=== PATIENT | male | born 1935 | race Caucasian/White ===

== ENCOUNTER 2025-03-16 06:11 | Inpatient (IN) | payer MEDICARE, OTHER, SELFPAY ==
[2025-03-11 08:51] VITALS: BMI 27.2
[2025-03-11 09:15] LABS: Hematocrit 44.7 % (39.0-52.0); Hemoglobin 14.3 g/dL (13.0-18.0); Mean Corp Hgb Conc. 32.0 g/dL (33.0-37.0); Mean Corpuscular Volume 95.9 fL (80.0-94.0); Nucleated Red Blood Cells % 0 % (-); Platelet Count 146 10^3/uL (130-400); Red Cell Dist. Width 14.1 % (11.5-14.5)
[2025-03-11 09:24] LABS: INR 1.02; PT 13.9 Sec (11.4-14.6)
[2025-03-11 09:25] LABS: APTT 30.2 Sec (23.4-35.0)
[2025-03-11 10:28] LABS: Blood Urea Nitrogen 27 mg/dl (9-20); Calcium 9.1 mg/dl (8.4-10.2); Carbon Dioxide 24 mmol/L (22-30); Chloride 108 mmol/L (98-107); Estimated Creatinine Clearance 51 ml/min; Glucose 95 mg/dl (70-99); Potassium 5.5 mmol/L (3.5-5.1); Sodium 141 mmol/L (135-145); eGFR > 60.00
--- NOTE | 2025-03-11 12:31 | PTCARENOTE ---
Mariely in office made aware of K 5.5.
--- NOTE | 2025-03-11 13:58 | PTCARENOTE ---
Dr Sanchez made aware of K 5.5, repeat lab morning of surgery ordered.
[2025-03-16] VITALS (23 sets, daily range): BP systolic 98–172; BP diastolic 45–103; BMI 27.2; BMI 27.0
[2025-03-16] MEDS: PERIDEX 0.12% ORAL RINSE 15 ML PO (07:10)
[2025-03-16] MEDS: BACTROBAN NASAL 1 GRAM NASAL (07:10)
[2025-03-16] MEDS: NSS 228 IV (07:11)
--- NOTE | 2025-03-16 07:12 | W.SUR.PREOP ---
Pre-Operative Surgical Note
-
I have examined this patient prior to the performance of the scheduled procedure.
The patient's condition is unchanged from the time of the current History and
Physical and the patient is able to undergo the scheduled procedure.
[2025-03-16 07:30] LABS: Blood Urea Nitrogen 22 mg/dl (9-20); Calcium 8.8 mg/dl (8.4-10.2); Carbon Dioxide 27 mmol/L (22-30); Chloride 107 mmol/L (98-107); Estimated Creatinine Clearance 58 ml/min; Glucose 94 mg/dl (70-99); Potassium 4.3 mmol/L (3.5-5.1); Sodium 139 mmol/L (135-145); eGFR > 60.00
[2025-03-16 11:14] LABS: ACT-LR - POC 227 Seconds (116-155)
[2025-03-16 12:13] LABS: ACT-LR - POC 240 Seconds (116-155)
[2025-03-16 13:00] LABS: ACT-LR - POC 227 Seconds (116-155)
[2025-03-16 13:12] LABS: ACT-LR - POC 266 Seconds (116-155)
[2025-03-16 14:05] LABS: ACT-LR - POC 223 Seconds (116-155)
[2025-03-16 14:16] LABS: ACT-LR - POC 218 Seconds (116-155)
[2025-03-16 14:28] LABS: ACT-LR - POC 253 Seconds (116-155)
[2025-03-16 15:23] LABS: ACT-LR - POC 215 Seconds (116-155)
--- NOTE | 2025-03-16 16:36 | W.SUR.POST ---
Surgical Immediate Post Op
Note
Pre Op Diagnosis: AAA
Post Op Diagnosis: AAA
Procedure Performed: EVAR with thoracoabdominal aortic branched graft�TAMBE
Primary Surgeon: El
Assist: Sandip CAMERON and Thong CAMERON
Anesthesia: General
Estimated Blood Loss: 200 cc
Fluids: See anesthesia flowsheet
Drains/Shunts: None
Specimens/Cultures: None
Doppler/Duplex/Angio (Y/N): Y
Complications: None
Operative Findings: Palpable bilateral DP pulses and right upper extremity radial pulse upon completion
[2025-03-16 16:37] LABS: Magnesium 1.8 mg/dl (1.6-2.3)
[2025-03-16] MEDS: SUBLIMAZE 50 MCG IV ×2 (16:56→17:23)
--- NOTE | 2025-03-16 17:07 | CON.INTV ---
Consultation
Consultation Request
Date/Time Consultation Requested: 03/16
Date/Time Consultation Performed: 03/16
Reason for Consultation: Critical care management
Medical History
-
History of Present Illness:
History primarily obtained from the chart and reviewing outpatient records. Patient is still waking her from anesthesia, evaluated in the PACU. Patient is an 89-year-old male who follows vascular surgery with history of abdominal aortic aneurysm.
Patient was noted to have juxtarenal and infrarenal involvement increased to 6.5 cm. Patient is currently status post endovascular repair of juxtarenal abdominal aortic aneurysm with [place] thoracoabdominal branched endoprosthesis and a four-vessel
stent graft placement, Right axillary open surgical cutdown and percutaneous bilateral Comment femoral artery closure. Patient was complaining of right leg pain given fentanyl in the PACU. Episodes of apnea noted the patient is easily arousable,
hemodynamically stable. We are asked to help from critical care standpoint
.
PMH: Hypertension, history of pacemaker placement 2010 with history of ablation in [place]. History of nephrolithiasis. 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
Past Medical History
Past Medical History: None (See above)
Past Surgical History: None (See above)
Social History
Tobacco: Non-smoker
Employment: Retired
Family History
Family History: Unable to Obtain
Allergies / Home Medications
Allergies
Allergy/AdvReac Type Severity Reaction Status Date / Time
No Known Allergies Allergy Verified 03/16/25 07:13
Home Medications
�Medication �Instructions �Recorded �Confirmed �Last Taken �Type
3 In 1 Daily Fiber 5 cap PO BID 03/09/25 03/16/25 03/15/25 21:00 History
ascorbic acid (vitamin C) 500 mg 500 mg PO DAILY 03/09/25 03/16/25 03/15/25 08:00 History
tablet (Vitamin C)
aspirin 81 mg tablet,delayed 81 mg PO DAILY 03/09/25 03/16/25 03/15/25 08:00 History
release
calcium 600 mg (as 1 tab PO DAILY 03/09/25 03/16/25 03/15/25 08:00 History
carbonate)-vitamin D3 10 mcg (400
unit) tablet (Calcium 600 + D(3))
ibuprofen 200 mg tablet 200 - 400 mg PO Q6H PRN 03/09/25 03/09/25 Unknown History
pain/headache
metoprolol succinate 50 mg 50 mg PO HS 03/09/25 03/16/25 03/15/25 21:00 History
tablet,extended release 24 hr
pantoprazole 20 mg tablet,delayed 20 mg PO DAILY 03/09/25 03/16/25 03/15/25 21:00 History
release
rosuvastatin 5 mg tablet 5 mg PO HS 03/09/25 03/16/25 03/15/25 21:00 History
tamsulosin 0.4 mg capsule 0.4 mg PO HS 03/09/25 03/16/25 03/15/25 21:00 History
Review of Systems
-
Unable to Obtain full review of systems at this time due to: Acuity
All other systems: Unreviewed
Vitals / Labs / Diagnostic Testing
Vital Signs
Temp Pulse Resp BP Pulse Ox
97 F 60 25 169/103 98
03/16/25 06:28 03/16/25 07:15 03/16/25 07:15 03/16/25 06:42 03/16/25 07:15
Diagnostic Testing:
Physical Exam
-
HEENT: Normocephalic, Anicteric and Other ( pupils equal)
Cardiovascular: S1/S2, Regular Rhythm, Murmur (n), Rub (n) and Peripheral Edema (n)
Respiratory: Wheeze (n), Rales (n) and Rhonchi (n)
GI: Soft, Non Distended and Non Tender
Neurology: Awake ( lethargic at times of arousable, answering questions)
Skin: Good Color ( few patchy bruising, lower extremities warm. Bilateral femoral pulse intact, right anterior chest incision intact)
General: Comfortable ( lying flat)
Assessment
-
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
distal extension with bifurcated endoprosthesis and bilateral iliac limb extension, right axillary cut down, bilateral common femoral artery closure on 03/16/25 without complication.
S/p EVAR with [place] thoracoabdominal aortic branched graft (TAMBE)
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
blood loss 200 cc
Challenging but successful cannulation of right renal artery
Mild leukocytosis
Conditions present prior to admission
Hypertension/hyperlipidemia
GERD
BPH
History of pacemaker, sick sinus syndrome
Plan/recommendations
At this time, patient remains critically ill but stable
Extensive postoperative report reviewed
Difficult cannulation of right main artery noted but successful with good filling of the right renal artery per angiogram
Hemodynamics presently stable
Patient moving all 4 extremities
Green catheter in place
Moving forward
Continue with IV fluids
Extremities warm, pulses intact, bilateral femoral pulse intact
Patient was complaining of right leg pain but adequate pulses noted
Vascular following
Follow urine output, follow for abdominal discomfort
GERD therapy
Pain control
vascular checks per protocol
Resume outpatient regimen per vascular protocol
Aspirin and Plavix to start 03/17
EKG, chest x-ray ones arise to ICU
Reviewed with PACU staff
TCCT 31 min
[2025-03-16 17:25] LABS: Hematocrit 37.2 % (39.0-52.0); Hemoglobin 11.8 g/dL (13.0-18.0); Mean Corp Hgb Conc. 31.7 g/dL (33.0-37.0); Mean Corpuscular Volume 94.9 fL (80.0-94.0); Platelet Count 120 10^3/uL (130-400); Red Cell Dist. Width 13.9 % (11.5-14.5)
[2025-03-16 17:38] LABS: INR 1.34; PT 16.9 Sec (11.4-14.6)
[2025-03-16 17:39] LABS: APTT 29.2 Sec (23.4-35.0)
--- NOTE | 2025-03-16 17:40 | OR.RPT ---
Addendum entered and electronically signed by Nathanael Gallegos MD 03/16/25 17:53:
1 correction to the operative note below. After the Cochran VBX (the initial Cochran VBX) was positioned in the right renal artery, it was at that point that the remainder of the main Cochran TAMBE graft was completely deployed. This is the standard
method, completing the last covered stent once the main graft has been completely deployed. (In order to prevent any wind socking effect).
Original Note:
Operative Report
Operative Report
PROCEDURE DATE: 03/16/2025
Preoperative diagnosis: Enlarging juxtarenal, bilobed abdominal aortic aneurysm.
Postoperative diagnosis: Same
Procedure:
1. Endovascular repair of juxtarenal abdominal aortic aneurysm with Cochran TAMBE thoracoabdominal branched endoprosthesis with 4 vessel branch stent graft placement (with Cochran VBX covered stents).
2. Distal extension with Cochran excluder bifurcated endoprosthesis with bilateral iliac limb extension.
3. Right axillary open surgical cutdown.
4. Percutaneous bilateral common femoral artery closure.
Surgeon: El
Retail Customer Service Representative: Shlomo, PATTERN SCRATCHER's, required for all aspects of procedure including assistance with traction/countertraction, assistance with stent graft delivery, assistance with closure.
Complications: None
Anesthesia: General
Fluoroscopy:
3.224 Taylor, 666.20 DAP, 124.9 minutes
Indications for procedure:
Enlarging abdominal aortic aneurysm bilobed. Proximal component juxtarenal. Based on anatomy, not a candidate for standard EVAR or standard fenestrated endograft. We felt he would be a good candidate for Cochran TAMBE thoracoabdominal
endoprosthesis. Risk/benefits/alternatives also discussed. Patient understood and wished to proceed.
Description of procedure:
Patient was identified brought to the operating room placed on the table in supine position. After the adequate administration of anesthesia and perioperative antibiotics he was prepped and draped in the standard surgical fashion. A standard
preoperative timeout was undertaken and everybody was in agreement the plan.
A transverse incision was made about 1 fingerbreadth inferior to the clavicle at the juncture between the mid to distal third of the clavicle. This was carried through skin subcutaneous tissue with electrocautery. The pectoralis major muscle was
divided in the direction of fibers, and bluntly dissected to split the muscle fibers. The clavipectoral fascia was then dissected carefully. Any crossing vein branches were ligated between silk ties and divided. The axillary vein was identified.
One of the branches, possibly the cephalic arch, was ligated between silk ties and divided to facilitate exposure. In its usual location superior and posterior to the axillary vein, identified the axillary artery. It was carefully dissected away
from surrounding structures and great care to avoid any injury to structures. Vesseloops were passed around it proximally and distally. There was a branch arising somewhat anteriorly, likely the thoracoacromial artery or other. This was ligated
between silk ties and divided. While ligating it the axillary artery just adjacent to the branch appeared to tear. [id number] 5-0 Prolene was placed to repair this.
At this point, bilateral common femoral artery access was obtained under direct duplex ultrasound guidance. 6 Tunisian sheaths were placed over 0.035 inch wires. Next, small 1 cm incisions were made around the sheath entry sites bilaterally. Blunt
dissection was undertaken with hemostats to facilitate percutaneous suture delivery. Next, using the ProGlide suture system, percutaneous sutures were deployed at the 10:00 and 2 o'clock position bilaterally in the standard fashion. Suture strands
were tagged outside the skin. We exchanged for 11 Tunisian sheaths bilaterally. Next using a KMP catheter, I guided wires into the supraceliac aorta from bilateral access sites. On the left side I exchanged out for a pigtail catheter which was
positioned in the juxtarenal aorta. The right side I exchanged for a Lunderquist wire. The patient was given an appropriate dose of heparin. Next I exchanged my right-sided 11 Tunisian sheath for a Cochran dry seal 22 Tunisian sheath which was advanced
into the aorta under fluoroscopy.
At this point, I turned my attention back to the right axillary exposure. I now punctured the artery at that branch site that I had prior ligated. (I actually disconnected the branch and through the small hole in the artery there I accessed with a
needle and then advanced a micropuncture sheath). I now advanced a 0.035 inch wire, but there were some tortuosity in the axillary artery and into the innominate/arch of the aorta. This proved to make it slightly challenging for shorter sheaths to
be advanced over the 0.035 inch wire but I advanced a 7 Tunisian sheath as far as I could. I now tried to gain wire access into the descending thoracic aorta which actually proved to be challenging due to the tortuosity of the aorta. Once I finally
got a wire down, I tried to advance a catheter (Robinson catheter). However it kept popping out due to the tortuosity. Finally, I was able to gain wire access all the way down into the abdominal aorta. I now advanced the Miguel catheter all the way
down there. I exchanged for a Storq wire. I then exchanged for a longer 7 Tunisian sheath to overcome some of the tortuosity in the subclavian/axillary system. Once I did this, I then advanced a snare catheter and then trilobed snare into the
descending thoracic aorta. From the right sided femoral access/22 Tunisian sheath, I advanced a Jagwire. I snared this now in the descending thoracic aorta and pulled it out the 7 Tunisian axillary artery sheath. Now I had through and through wire
access with a Jagwire (400 cm). Now with the Jagwire maintaining tension, I exchanged the 7 Tunisian from the axillary artery access to a 12 Tunisian sheath which was advanced into the descending thoracic aorta.
At this point, I advanced the Cochran TAMBE endoprosthesis over the Jag wire that came out the R groin 22F sheath. However I did not advance it into the sheath yet. I positioned it in the standard fashion with the handle of the delivery device facing
downward.
Now I advanced a Tri lumen catheter from the axillary sheath over the Jagwire and passed it until it came out the hub of the 22 Tunisian right sided Cochran dry seal sheath. With the catheter positioned as such, I now advanced a 0.018 inch wire through
one of the 2 small additional lumens (1 with a small taylor tube, and the other had a small white tube emanating). This was advanced until it came out the try lumen catheter in the groin. It was the lateral (patient left) side, and therefore we now
inserted this through the precannulated tube for the left renal branch/portal (of the precannulated tubes we first accessed the longer ones and this was the lateral of the longer). Clear marking with hemostats was made both in the groin site that
this was the left renal. Next we did the celiac in a similar fashion through the other tube and the Tri lumen. It was also marked with a hemostat labeling it as the celiac. The Tri lumen catheter was then withdrawn maintaining tension on the
0.018 inch wires in the groin to avoid them being pulled out. Now we identified which wire correlated to which marking in the groin at her axillary site as well and placed hemostats on those wires to confirm which wires were through which portals.
We similarly now did this again with the Tri lumen catheter and advanced 2 more wires similarly labeling them right renal and SMA. Once we had all 4 wires labeled, the Tri lumen catheter was withdrawn over the Jagwire.
Now that the Cochran TAMBE endoprosthesis ([id number]) - which was a 37mm x 160mm graft -was loaded completely onto the Jagwire through the central lumen, and all 4 visceral precannulated branches were successfully decannulated, we now advanced the
endoprosthesis through the sheath in the right groin maintaining through and through tension on the Jagwire. Once I advanced it into the abdominal aorta/distal descending thoracic aorta, power injection aortography was performed. Of note care was
taken to make sure that the long marker was on the left lateral side (left lateral vitale the correct positioning). We had to rotate the graft to get it to be positioned correctly, but was able to do so successfully. Once that was position, and our
power injection aortography was performed, we noted the positions of the celiac artery and the renal arteries and the SMA. We now positioned the stent graft such that the distal aspect of the renal artery portals would be at the level of the celiac
artery. Satisfied with positioning, we then deployed the initial segment of the graft. This deployed the top segment. However it was still constrained. Once we are satisfied with the positioning then the taylor knob was rotated to fully flower
open the top portion of the stent graft.
We now elected to start with our celiac cannulation. Therefore, 8 Tunisian Ansell sheath was advanced over the 0.018 inch wire from the axillary site under fluoroscopy and the sheath was advanced through the portal for the celiac and out the distal
aspect of the portal. The introducer was then removed. We then placed an additional petra wire (Glidewire) and catheter (Robinson catheter) through here. Using the floppy Glidewire and the Robinson catheter I tried to cannulate the celiac. However based
on the angulation and the proximity, the wire kept getting into the SMA. We therefore then decided to switch so that our prior labeled celiac through and through wire (through the celiac portal) would now be our SMA portal instead and vice versa of
the SMA portal would now be the celiac portal. Therefore, we now also exchanged the Glidewire in the distal SMA out for a Lorenz wire. Therefore we left the wire (0.035 inch) in the SMA from above and walked to the Ansell sheath off both wires (the
buddied 0.035 inch Lorenz wire as well as the 0.018 inch wire).
Now we turned our attention to the celiac artery. We now advanced our Ansell sheath over that 0.018 inch wire and advanced it under fluoroscopy through the portal and out the portal. The introducer was removed and then a Fierro catheter and
floppy angled wire were buddied through the sheath. I now was able to cannulate the celiac artery and into the hepatic artery. Of note the initial imaging to ernestina the celiac had been done and lateral wall close to lateral projection. I cannulated
both the SMA and the celiac and the more lateral projection. Blood flow back to AP once I was in the vessel. Now in AP I did confirm that my wire was in the hepatic artery. Next, the sheath was advanced into the celiac artery (after I had
exchanged for a Lorenz wire). I then advanced a Cochran VBX 9 mm x 59 mm covered stent and positioned it. I had performed angiography in the proper obliquity to identify the celiac bifurcation. I made sure that I was well short of the celiac
bifurcation. Once satisfied, the Ansell sheath was withdrawn. The through and through 0.018 inch wire was withdrawn out completely. The VBX stent graft was then ballooned into place. I then used a 12 mm x 2 mm balloon to balloon the more distal
aspect of the stent graft as the celiac was enlarged there. As the balloon was deflated I advanced the sheath back into the artery. Angiogram confirmed excellent positioning of the stent graft with good flow in the stent graft. Ansell sheath was
withdrawn out of the celiac completely. I did maintain a 0.035 inch Lorenz wire for now in the case that we would need to extend the celiac stent as we had a little bit of extra room to extend.
Now having completed the celiac, I turned my attention back to the SMA which was already wired. Therefore I then just placed the Ansell sheath back into the SMA. We marked the first branch point which would be the distal aspect of our VBX covered
stent. We then positioned a Cochran VBX 9 mm x 79 mm stent graft. Again as with the celiac we confirmed distally we were far enough into the vessel and proximally we were 5 mm to 1 cm above the proximal aspect of the SMA portal. Once satisfied, the
through and through wire was withdrawn and the Ansell sheath withdrawn back and the stent ballooned into place. Again we advance the sheath back while deflating the balloon and performed completion angiography demonstrating excellent positioning of
the stent graft with good filling of the SMA. Ansell sheath and Lorenz wire were withdrawn from the SMA now.
Now that we completed the celiac and SMA, we turned our attention to the left renal artery. Therefore we now advanced Ansell sheath (8 Tunisian again) over the 0.018 inch wire into the left renal portal and out the portal. Dilator was withdrawn.
Again we buddied a Glidewire and Fierro catheter through the sheath. However, i ended up having success with a Vanche 3 and a glide wrie - I then was able to cannulate the left renal artery. Initially we cannulated the small accessory renal
artery branch. I recognized this. I therefore then withdrew back, and reattempted several times and finally was able to get into the true left renal artery. I was excahnge for a 4 F [place] catheter and was able to advance the catheter into the
left renal artery, and confirmed angiographically as in the left renal artery. Lorenz wire was advanced. Positioning of anticipated stent graft endpoint was marked on the screen. VBX 5 mm x 79 mm covered stent position. Satisfied with
positioning, Ansell sheath withdrawn back, and through and through wire was completely removed (0.018 inch wire). Covered stent balloon into place. Due to the length additional (planned) stent was placed. Cochran Viabahn 7 mm x 39 mm was positioned
with sufficient overlap, and the top of the stent about 5 mm to 1 cm above the portal per standard practice was confirmed. This was then ballooned into place. Ansell sheath advanced back into the stent. Angiogram confirmed excellent flow and good
positioning of the stent. At this point Ansell sheath and Lorenz wire were withdrawn from the left renal artery.
Now we finally turned our attention to the right renal artery. The 8 Tunisian Ansell was then advanced over this 0.01 inch through and through wire. It was advanced through the portal and just out the portal. Was slightly more challenging due to
the positioning of the right renal. However was able to get it out of the portal. Now using a Fierro catheter and a Glidewire, I tried to cannulate the right renal artery. This proved to be an extremely challenging endeavor. Multiple attempts
were made with multiple catheters, multiple wires. Including Glidewire's (0.035 inch, 0.018 inch), glide catheters (4 Tunisian and 5 Tunisian), Vanche 3 catheter, Fierro catheter. I tried positioning the sheath in different positions, catheter in
different positions. Multiple angiograms were performed to identify the origin. I reviewed the CAT scan as well. The artery was slightly anterior, and there was a shelf of plaque at the origin. I think all these positioning attributes are making
it very challenging. I did finally cannulate it, but there was a big look downward loop and the wire prior to it getting into the artery, and I could not track anything, and actually ended up losing wire access as a result. I tried to come from
below to identify (from the left groin access), but I could not cannulate it from the left groin access as well. Therefore I went back to try from the axillary position again through the Ansell sheath. Finally, after multiple frustrating attempts,
I decided to try with a Cobra glide catheter. And this allowed the perfect angle for cannulation and the wire went right in. I therefore was unable to get wire access far enough out, and then advanced/exchanged for a 4 Tunisian glide which I was
able to advance out. I then exchanged for a Lorenz wire. Now with stable Lorenz wire access, I tried to advance my Ansell sheath into the artery, but could not get it into the artery. Therefore I then bare-backed a Cochran VBX 6 mm x 79 mm covered
stent into the artery proximal to the branch points, we had marked on the screen the distal aspect of the stent placement. Once satisfied with the positioning, and after removing the 0.018 inch through and through wire,, I ballooned it into place.
I tried to advance the sheath over the balloon as it deflated but could not advance it. I now used a second 7 mm x 59 mm Cochran VBX stent but could not advance it initially. Therefore I then ended up having to balloon with a small angioplasty
balloon and then tried to advance the sheath over the balloon. It advanced right up to the origin of the other stent but I could not get it well into the stent. However at this point I was able to finally advance the VBX through. Therefore I had
this more proximal VBX that overlapped with the distal 1 and again proximally it was about 5 mm to 1 cm above the origin of the right renal portal. I then ballooned this into place. Completion angiogram demonstrated excellent positioning and good
filling of the right renal artery. Now I removed the Fly sheath and Lorenz wire from the right renal artery.
At this point, I then completed deployment of the distal aspect of the main body of the graft. The delivery device was then withdrawn. Now the distal component was advanced which was a Cochran excluder bifurcated endoprosthesis ([id number]). Once
sufficient overlap was confirmed, I then deployed this down to the contralateral gate. The ipsilateral limb was then fully deployed. The delivery device for this was then walked off. Of note we had maintained it such that the limbs would cross
based on the layer of our wires. At this point I had pulled my pigtail down and exchanged over a Glidewire for a Fierro catheter. Using the Fierro catheter and the Glidewire was able to cannulate the contralateral gate, and advanced my
Fierro catheter up and exchanged for a stiffer wire. Over the stiffer Lunderquist wire I then used a molding balloon in the contralateral gate to confirm that I was through the gate. Satisfied with that, a marker pigtail was advanced over the
Lunderquist wire and positioned and a retrograde pelvic angiogram was performed to ernestina the bifurcation of the iliac arteries on the screen. We then determine the length of the iliac limb we would need. I then exchanged for a 12 Tunisian sheath (was
a 11 Tunisian short sheath in the left groin). Now through this sheath I advanced a Cochran excluder 18 x 13.5 iliac limb (PLC [id number]). This was then deployed taking care to land short of the iliac bifurcation. Once satisfied with this the delivery
device for this was removed. I then turned my attention to the right groin/iliac limb. We estimated the length of graft would need. Then used a Cochran excluder 28 x 13.5 iliac limb (PLC [id number]). This was also deployed taking care to avoid coverage
of the iliac bifurcation (landing just short of the leg bifurcation). Delivery device removed for this as well once completed. I then used a molding balloon to mold the overlap of the proximal TAMBE and distal Excluder. As well to mold the
overlaps of the iliac limbs. Completion angiogram now was performed that demonstrated excellent positioning of the stent graft. All 4 visceral arteries filled well. Good filling into both iliac arteries. There appeared to be either a type II
leak or a type III leak around the overlap area between the proximal and distal pieces. Therefore I withdrew the pigtail catheter into the graft and I still could not tell but it filled relatively briskly to suggest is a type III leak. Therefore
to be safe I then exchanged the pigtail catheter over Lunderquist wire and then placed a Cochran excluder 26 mm x 3.3 cm aortic cuff (RAMESH [id number]) between the distal TAMBE and the proximal main body of the distal excluder device. This was then balloon
molded into place. Now satisfied.
At this point, the through and through Jagwire was pulled back from the groin into the aorta (out of the axillary sheath). The Lorenz wire was pulled out of the celiac and out of the axillary sheath. The axillary sheath was then withdrawn while
clamping the axillary artery proximally and distally. The sheath entry site was then transversely closed with running 5-0 Prolene suture. I backbled the artery well and then completed and tied down my suture line. Released clamps. There was
excellent pulsatile flow. Hemostasis was fully achieved. This incision was closed in layers using 3-0 Vicryl followed by 4-0 Monocryl subcuticular stitch. Dermabond was applied.
Next, I sequentially removed the sheath while cinching down the percutaneous sutures. This was initially done on the right side and then on the left. Once hemostasis was noted the wire was then withdrawn, the knot was tightened with a knot pusher.
Hemostasis was confirmed. The knot was then locked and the suture strands trimmed. This was done as noted on the right initially and then on the left. Hemostasis was fully achieved bilateral groins with good femoral pulses bilaterally. The
small skin incisions were then closed with 4-0 Monocryl subcuticular stitch and Dermabond was applied. Patient tolerated procedure well. He had palpable DP pulses bilaterally and palpable right radial pulse upon completion.
The patient tolerated the procedure well. All sponge, needle, instrument counts were correct upon completion. He was transferred to the recovery room in stable condition. Note I did discuss with the family radiation dose slightly exceeding 3 Taylor.
[2025-03-16 17:41] LABS: Blood Urea Nitrogen 19 mg/dl (9-20); Calcium 7.6 mg/dl (8.4-10.2); Carbon Dioxide 21 mmol/L (22-30); Chloride 107 mmol/L (98-107); Estimated Creatinine Clearance 58 ml/min; Glucose 142 mg/dl (70-99); Potassium 4.5 mmol/L (3.5-5.1); Sodium 135 mmol/L (135-145); eGFR > 60.00
[2025-03-16 17:42] LABS: ALT (SGPT) 16 U/L (0-50); AST (SGOT) 25 U/L (17-59); Albumin 3.0 g/dl (3.5-5.0); Alkaline Phosphatase 68 U/L (38-126); Total Protein 5.3 g/dl (6.3-8.2)
[2025-03-16 17:59] LABS: Magnesium 1.8 mg/dl (1.6-2.3)
[2025-03-16] MEDS: NSS 1000 IV (18:10)
[2025-03-16] MEDS: NSS (PRESERVATIVE FREE) 10 ML IV (18:10)
[2025-03-16] MEDS: PLAVIX 300 MG PO (18:10)
[2025-03-16] MEDS: PROTONIX IV 40 MG IV (18:10)
--- NOTE | 2025-03-16 18:31 | PTCARENOTE ---
Addendum entered by Dior Morgan RN 03/16/25 18:40:
rodriguez draining yellow urine. ivf infusing as per order.
Original Note:
pt received from pacu- drowsy but arousable, aox3. av paced on monitor, ekg completed per protocol. left radial rosemary zeroed and functioning, correlating with cuff pressures. pt on 2LNC, no complaints at this time. completed with supervisor frame sample and pattern- pt with
palpable bilateral pedal pulses, palpable bilateral radials and bilateral doppler pt pulses. legs warm to touch, good sensation, no edema. bilateral fem sites wilman, soft to touch. right chest site unchanged per supervisor frame sample and pattern. all safety precautions in
place, call taylor within reach. bed alarm on and functioning, pt and daughters educated about flat bed restrictions, verbalized understanding.
--- NOTE | 2025-03-16 18:50 | PTCARENOTE ---
pt received from pacu- drowsy but arousable, aox3. av paced on monitor, ekg completed per protocol. left radial rosemary zeroed and functioning, correlating with cuff pressures. pt on 2LNC, no complaints at this time. completed with flange turner- pt with
palpable bilateral pedal pulses, palpable bilateral radials and bilateral doppler pt pulses. legs warm to touch, good sensation, no edema. bilateral fem sites wilman, soft to touch. right chest site unchanged per flange turner. all safety precautions in
place, call taylor within reach. bed alarm on and functioning, pt and daughters educated about flat bed restrictions, verbalized understanding. rodriguez draining yellow urine. ivf infusing as per order. lungs clear, bowel sounds absent.
[2025-03-16 18:54] LABS: Glucose - Point of Care 124 mg/dl (70-99)
[2025-03-16] MEDS: DILAUDID 0.5 MG IV ×2 (19:12→21:43)
[2025-03-16 19:13] LABS: Blood Urea Nitrogen 20 mg/dl (9-20); Calcium 7.9 mg/dl (8.4-10.2); Carbon Dioxide 20 mmol/L (22-30); Chloride 107 mmol/L (98-107); Estimated Creatinine Clearance 60 ml/min; Glucose 141 mg/dl (70-99); Potassium 4.5 mmol/L (3.5-5.1); Sodium 133 mmol/L (135-145); eGFR > 60.00
--- NOTE | 2025-03-16 19:43 | PTCARENOTE ---
Rec'd pt resting in bed, c/o 'ruth hoarse R leg - I get them at home' Dilaudid 0.5 mg iv given at 1915 for pain, pt cooperative, follows commands, AV paced, Left rad rosemary w/ good wave form, flushes well, approx 20 > than cuff, R chest incis
intact w/ surg adhesive, slightly redened and swollen ( per offgoing RN- unch), bilat groin incis intact w/ surg adhesive, left pedal via doppler, other distal pulses palpable, feet warm, good sensation, denies chest pain, O2 2 liters nc, lungs
decr, sat 94, enc to use IS- reaches 1000, no sob, hypo bowel sounds, no bm, abd soft, nontender, no n/v, brennan sips h20,themister rodriguez draining pola urine
--- NOTE | 2025-03-16 19:51 | PTCARENOTE ---
Rec'd pt resting in bed, c/o 'ruth hoarse R leg - I get them at home' Dilaudid 0.5 mg iv given at 1915 for pain, pt cooperative, follows commands, AV paced, Left rad rosemary w/ good wave form, flushes well, zeroed, approx w/ cuff; R chest incis
intact w/ surg adhesive, slightly redened and swollen ( per offgoing RN- unch), bilat groin incis intact w/ surg adhesive, left pedal via doppler, other distal pulses palpable, feet warm, good sensation, denies chest pain, O2 2 liters nc, lungs
decr, sat 94, enc to use IS- reaches 1000, no sob, hypo bowel sounds, no bm, abd soft, nontender, no n/v, brennan sips h20,themister rodriguez draining pola urine
[2025-03-16] MEDS: FLOMAX 0.4 MG PO (21:27)
[2025-03-16] MEDS: TOPROL XL 50 MG PO (21:28)
[2025-03-16] MEDS: CRESTOR 5 MG PO (21:28)
[2025-03-16] MEDS: MAGNESIUM SULFATE 100 IV (21:34)
[2025-03-16] MEDS: HEPARIN 5000 UNITS SC (21:44)
--- NOTE | 2025-03-16 21:49 | PTCARENOTE ---
pt c/o severe R calf pain,pulses unch, no tenseness, good sensation in feet, B Jose, HYDRAULICS ENGINEER aware, dilaudid 0.5mg iv given as ordered, mag 1 gm hung over 1hr,to hang calcium after arrives from pharmacy; Dr rodriguez updated on pain- will cont to monitor
[2025-03-16] MEDS: CALCIUM GLUCONATE 100 IV (22:54)
--- NOTE | 2025-03-16 23:00 | PTCARENOTE ---
pt cont to c/o of R calf pain, pulses unch, able to move foot, good sensation, R calf tense, swollen, B Jose, CENTRAL SUPPLY ASSISTANT in to assess,when pt dorsiflexes foot pain increases, w/ plantar flex pain decreases, stat ultrasound ordered- called ultrasound to
let them know of order ; Dr Green notified via text
[2025-03-16] MEDS: APRESOLINE 5 MG IV (23:24)
--- NOTE | 2025-03-16 23:25 | PTCARENOTE ---
apresoline 5mg iv given for elevated bp
[2025-03-17] VITALS (25 sets, daily range): BP systolic 108–164; BP diastolic 57–92; BMI 26.0
--- NOTE | 2025-03-17 00:10 | PTCARENOTE ---
sys reviewed, R calf measures 13 1/2 ' at largest point, pt does not c/o of pain unless he movese his leg, left groin site ecchy- outlined ecchymosis, CHG bath done, linens changed, US LE done by tech
--- NOTE | 2025-03-17 00:55 | PTCARENOTE ---
c/o R upper lip swelling- underside of lip appears swollen/bruised (? from ETT?), no swelling of tongue, B Garcia, WAX MOLDER aware, only c/o pain R LE w/ movement, still tense/firm
[2025-03-17] MEDS: DILAUDID 0.5 MG IV ×2 (01:57→06:22)
--- NOTE | 2025-03-17 01:58 | PTCARENOTE ---
dilaudid 0.5 mg iv given for R LE pain
--- NOTE | 2025-03-17 02:00 | PTCARENOTE ---
dilaudid 0.5 mg iv given for R LE pain
[2025-03-17 03:20] LABS: Hematocrit 36.8 % (39.0-52.0); Hemoglobin 11.8 g/dL (13.0-18.0); Mean Corp Hgb Conc. 32.1 g/dL (33.0-37.0); Mean Corpuscular Volume 93.4 fL (80.0-94.0); Platelet Count 125 10^3/uL (130-400); Red Cell Dist. Width 13.6 % (11.5-14.5)
[2025-03-17 03:31] LABS: INR 1.30; PT 16.4 Sec (11.4-14.6)
[2025-03-17 03:32] LABS: APTT 28.1 Sec (23.4-35.0)
[2025-03-17 03:47] LABS: Blood Urea Nitrogen 21 mg/dl (9-20); Calcium 8.7 mg/dl (8.4-10.2); Carbon Dioxide 22 mmol/L (22-30); Chloride 110 mmol/L (98-107); Estimated Creatinine Clearance 53 ml/min; Glucose 129 mg/dl (70-99); Potassium 4.5 mmol/L (3.5-5.1); Sodium 137 mmol/L (135-145); eGFR > 60.00
--- NOTE | 2025-03-17 04:00 | PTCARENOTE ---
sys reviewed, pt only c/o R calf pain w/ movement
[2025-03-17] MEDS: NSS 1000 IV (05:39)
--- NOTE | 2025-03-17 06:24 | PTCARENOTE ---
dilaudid 0.5 mg given for pain
--- NOTE | 2025-03-17 07:07 | PTCARENOTE ---
Received pt in bed with 0.9nss via left FA IV. +DP/PT pulses bilaterally. Good radial pulses. He is very pleasant, [place]. He was informed of the plan of care regarding removal of his arterial line, capping his IVF and ambulation. Left radial arterial
line transduced with all caps patent and secured. Lungs dim in the bases, tolerating 2 liters nasal cannula. +BSx4. Green secured draining yellow urine. Right ACW incision BRENT with surgical glue, ecchymotic along the incision line. Right groin
incision BRENT with surgical glue and ecchymotic. Left groin dressing with small shadowing and grossly ecchymotic. Right L/E with improved calf tenderness. He is able to flex his toes, less discomfort with palpation. SBD to his sacrum intact. Safe
environment maintained. Will continue to monitor.
--- NOTE | 2025-03-17 07:37 | W.PN.INTV ---
Today's Communication / Plan
Recommendations
Antiplatelet therapy per vascular surgery
Right lower extremity arterial ultrasound pending
Green catheter, A-line out
PT/OT, ambulate
Disposition efforts
Assessment
-
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
distal extension with bifurcated endoprosthesis and bilateral iliac limb extension, right axillary cut down, bilateral common femoral artery closure on 03/16/25 without complication.
S/p EVAR with GORE thoracoabdominal aortic branched graft (TAMBE)
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
blood loss 200 cc
Challenging but successful cannulation of right renal artery
Mild leukocytosis
Conditions present prior to admission
Hypertension/hyperlipidemia
GERD
BPH
History of pacemaker, sick sinus syndrome
Plan/recommendations
At this time, patient appears to be doing well objectively and subjectively
Extensive postoperative report reviewed
Difficult cannulation of right main artery noted but successful with good filling of the right renal artery per angiogram
Hemodynamics presently stable
Patient moving all 4 extremities
Urine output adequate
Denies abdominal pain. Creatinine is stable
Moving forward
Continue with management per vascular surgery
Extremities warm, pulses intact, bilateral femoral pulse intact
Patient was complaining of right leg pain but adequate pulses noted, pain improved
Vascular following
Arterial study pending
Follow urine output, follow for abdominal discomfort
Green catheter removed
GERD therapy
Pain control
vascular checks per protocol
Resume outpatient regimen per vascular protocol
Aspirin and Plavix to start 03/17
Reviewed with critical care nursing, respiratory care, pharmacy
Ongoing disposition efforts per vascular surgery
Subjective Dataa
Subjective Data
Date of Service:
Date of Service: March 17, 2025
Subjective:
Patient feels well. Denies shortness of breath, chest pain, nausea, abdominal pain. Right calf pain is improved. Green catheter and A-line have been removed
Objective Data
Data Reviewed
Vital Signs / I&O / Oxygen:
Vital Signs
Temp Pulse Resp BP Pulse Ox
98.7 F 74 23 133/62 93
03/17/25 07:14 03/17/25 07:00 03/17/25 07:00 03/17/25 06:00 03/17/25 07:00
Intake and Output
03/16/25 03/17/25 03/18/25
06:59 06:59 06:59
Intake Total 1850 / 1930 80 / 80
Output Total 3055 / 3240 185 / 185
Balance -1205 / -1310 -105 / -105
SaO2 93
Nasal Cannula flow liters per 2
minute
Physical Exam
General: Comfortable
HEENT: Normocephalic and Anicteric
Cardiovascular: S1-S2, Regular Rhythm and Murmur (n)
Respiratory: Wheeze (n), Crackles (n), Rhonchi (n) and Non-Labored Respirations
GI: Soft, Non Distended and Non Tender
Neurology: Awake, Alert and No Motor Deficits
Skin: Rash (n), Bruising (n) and Other (Right anterior chest incision intact)
Labs/Micro/Reports
Lab Data
03/17/25 03:07
03/17/25 03:07
Laboratory Results
03/16/25 03/17/25
17:15 03:07
PT 16.9 H 16.4 H
INR 1.34 1.30
APTT 29.2 28.1
--- NOTE | 2025-03-17 07:45 | W.PN.ANS.POP ---
Anesthesia Post Operative
- Anesthesia Post Op Note
Vital Signs Stable-See Nursing Note: Yes
Airway Patent: Yes
Adequate Pain Control: Yes
Change in Mental Status: No
Current Postoperative Nausea & Vomiting: No
Anesthesia Complications: No
General Anesthetic Recall: No
Unplanned Admission: No
Post Op Hydration Adequate: Yes
--- NOTE | 2025-03-17 08:08 | W.PN.VS ---
Addendum entered and electronically signed by Nathanael Gallegos MD 03/17/25 08:16:
Seen and examined with JIMMY Benito. Agree with findings as noted below. Patient had complaints of right calf pain overnight. He notes that it feels like a 'charley horse.' However he notes that its gotten better today. He notes that with active
dorsiflexion, his calf was hurting a lot last night. However it is better to the point now that he is able to do it without difficulty. He denies any numbness or weakness in his foot. She has pain in the calf. Denies any pain in the abdomen. No
other complaints.
On exam/he is awake and alert. Breathing is unlabored. Right chest wall incision is clean dry and intact, no hematoma. 2+ palpable right radial pulse. Abdomen is soft, nondistended, nontender. Groins are flat bilaterally. Left groin ecchymosis
noted. Palpable bilateral femoral pulses and 2+ palpable DP pulses bilaterally. Right calf compartment slightly full but not tense. Not too tender on exam really. Motor/sensory function of the foot and ankle/calf fully intact.
Labs reviewed.
Plan/postoperative day #1 status post [place] TAMBE thoracoabdominal branch endoprosthesis. Overall doing pretty well. I suspect he had some ischemia/reperfusion to the right lower extremity resulting in compartment fullness. When I seen him in the
recovery room postop yesterday he was complaining of some calf pain but his calf was completely soft. DVT study was negative. Now it is a little bit jackson but remains compressible. No overt compartment syndrome. No neurologic symptoms. Will
continue to observe. Remainder of plan as noted below. Will obtain ultrasounds to rule out any left groin pseudoaneurysm (though less likely but some ecchymosis). Will also do complete arterial studies of the lower extremities to make sure no
ongoing ischemia that would have resulted in right calf pain. However based on exam there is palpable pulses and this is less likely.
Original Note:
Today's Communication / Plan
-
Seen and assessed with Dr. Gallegos
Assessment/Plan
-
Postop day 1
Endovascular repair of juxtarenal abdominal aortic aneurysm with [place] TAMBE thoracoabdominal branched endoprosthesis with 4 vessel branch stent graft placement (with [place] VBX covered stents).
Distal extension with [place] excluder bifurcated endoprosthesis with bilateral iliac limb extension.
Right axillary open surgical cutdown.
Percutaneous bilateral common femoral artery closure.
Plan:
DC A-line
DC Green
DC IV fluids
Out of bed to ambulate
Increase diet
P.o. medications
Left groin ultrasound to rule out PSA
Bilateral lower extremity arterial ultrasound/MICHAEL/TBI
Continue aspirin/Plavix
Subjective Data
-
Date of Service: March 17, 2025
Patient seen at bedside this a.m. with Dr. Gallegos. Patient states overnight right calf was painful especially with dorsiflexion. He states the discomfort is better this morning. No other events overnight. DVT study was negative
Objective Data
-
Vital Signs
Temp Pulse Resp BP Pulse Ox
98.7 F 63 16 112/67 93
03/17/25 07:14 03/17/25 08:00 03/17/25 08:00 03/17/25 08:00 03/17/25 08:00
Intake and Output
03/16/25 03/17/25 03/18/25
06:59 06:59 06:59
Intake Total 1850 / 1930 160 / 160
Output Total 3055 / 3240 185 / 185
Balance -1205 / -1310 -25 / -25
Intake:
Oral fluids 300 / 300
IV fluids (Total) 1550 / 1630 160 / 160
Normosol 300 / 300
Nss 1,000 ml @ 80 mls/hr IV . 970 / 1050 160 / 160
[id number] REUBEN Rx#:[id number]
misti gluc 100 / 100
mag sulfate 100 / 100
ns @80/hr 80 / 80
Output:
Urine, Green 3055 / 3240 185 / 185
Lab Results
03/17/25 03:07
03/17/25 03:07
Calcium 8.7 mg/dl (8.4-10.2) 03/17/25 03:07
Phosphorus 3.9 mg/dl (2.5-4.5) 03/16/25 17:15
Magnesium Cancelled 03/16/25 21:22
Total Bilirubin 0.7 mg/dl (0.2-1.3) 03/16/25 17:15
Direct Bilirubin 0.4 mg/dl (0.0-0.4) 03/16/25 17:15
AST 25 U/L (17-59) 03/16/25 17:15
ALT 16 U/L (0-50) 03/16/25 17:15
Alkaline Phosphatase 68 U/L (38-126) 03/16/25 17:15
Total Protein 5.3 g/dl (6.3-8.2) L 03/16/25 17:15
Albumin 3.0 g/dl (3.5-5.0) L 03/16/25 17:15
Physical Exam
-
AAO x 3
No tachypnea on 2 L nasal cannula
No tachycardia
Abdomen soft, nontender, nondistended
Right groin site clean, dry, intact, soft, flat
Left groin site clean, dry, intact, soft, flat, small area of ecchymosis outlined/unchanged
Right calf slightly larger than left, slightly tense, no pain with compression/palpation
Bilateral feet warm and pink, palpable DP pulses
[2025-03-17] MEDS: HEPARIN 5000 UNITS SC ×2 (09:07→19:59)
[2025-03-17] MEDS: ASPIR LOW (ENTERIC COATED) 81 MG PO (09:07)
[2025-03-17] MEDS: VITAMIN C 500 MG PO (09:07)
[2025-03-17] MEDS: PLAVIX 75 MG PO (09:07)
[2025-03-17] MEDS: PROTONIX 20 MG PO (09:07)
[2025-03-17] MEDS: OSCAL 500 + D 500 MG PO (09:07)
--- NOTE | 2025-03-17 11:44 | PTCARENOTE ---
1 assist OOB to the chair. Reported 6 out of 10 pain behind his right medial ankle while standing and stepping, resolved once seated & non weight bear.
--- NOTE | 2025-03-17 12:25 | CM ---
Initial assessment completed with patient with 2 of 3 daughters in room. Patient lives alone in a 3rd floor apartment in elevator building at [facility]. His recently passed. His 3 daughters are HC-POA. VEHICLE WINDOW TINTER patient was independent in ambulation
and ADL's, drives. No DME or in-home services. He was in the [employer] but does not have VA benefits. PCP is Riley Phillips. Pharmacy is [address] in [place]. Discharge POC: Anticipate home with no needs. Daughter will stay with him
for 2 weeks after discharge.
--- NOTE | 2025-03-17 14:00 | PTCARENOTE ---
Pt was not able to void. 1 assist to the BR with rolling walker, still not able to void. He is not flexing the right foot when walking. He is walking flat footed on the right. He reported worsening pain when he attempted to walk flexing is foot.
Right calf is noticeably larger when comparing it to the left posteriorly. Bladder scanned in the bed for 395.He was encouraged to drink more fluids. Will reassess per protocol. He and his daughters are aware f the plan of care.
--- NOTE | 2025-03-17 15:30 | PTCARENOTE ---
Pt unable to sleep. He c/o nagging pain in his mid lower back. Back rub provided and he was assisted to a standing position with improvements in his pain. He was able to stand at the sink and brush his teeth then empty his bladder. He c/o burning
discomfort while urinating. He reported a small spot of light red on the tissue when he was wiping his penis. Yellow concentrated urine in the toilet noted. Bladder scanned afterwards for zero. Even sitting in the chair he c/o low back pain again.
Pillows propped and positioned in the chair to his comfort. Safe environment maintained. He was instructed to use the call taylor to reposition or for when he was getting tired.
[2025-03-17] MEDS: ROXICODONE 5 MG PO ×2 (15:48→22:08)
--- NOTE | 2025-03-17 17:57 | PTCARENOTE ---
Clarified with Therese CAMERON that it was ok for him to walk in the halls. He did 1.5 loops around the entire 3rd floor with rolling walker. He was able to get more flexibility in his right foot with minimal pain. Balance remained steady.
[2025-03-17] MEDS: TYLENOL 650 MG PO (18:13)
--- NOTE | 2025-03-17 20:00 | PTCARENOTE ---
Rec'd pt sitting on chair, denies incis pain, forgetful, LOWER BRULE, Vpaced, bp stable, + pulses, R calf firm, swollen- pain has decr since last night, when amb in hallway initially had pain but then improved, R calf measures 14.5 ';pt brennan ambulation in
ashraf but when returned to chair was [place] for a short time, skin warm/dry, RA, lungs decr in bases, sat 95, no cough, enc to use IS- reaches 1500, + bowel sounds, no bm abd round, soft, nontender, no nv, brennan diet, voiding prn in urinal
--- NOTE | 2025-03-17 22:15 | PTCARENOTE ---
Addendum entered by Maru Canela RN 03/17/25 22:50:
RA sat-91, 2liters nc applied
Original Note:
assisted to bathroom- voided, then to bed,oxy 5mg po given for RLeg pain & back pain, ,melatonin 5 mg po given as requested
[2025-03-17] MEDS: CRESTOR 5 MG PO (22:29)
[2025-03-17] MEDS: MELATONIN 5 MG PO (22:29)
[2025-03-17] MEDS: TOPROL XL 50 MG PO (22:29)
[2025-03-17] MEDS: FLOMAX 0.4 MG PO (22:29)
[2025-03-18] VITALS (13 sets, daily range): BP systolic 103–149; BP diastolic 59–84; BMI 27.1
--- NOTE | 2025-03-18 00:01 | PTCARENOTE ---
sys reviewed, R calf 14.5 ' circumference, still firm, lungs w/ fine bibas crackles, 2 liters nc on, CHG bath done, linens changed
--- NOTE | 2025-03-18 02:36 | DOWNTIME ---
There was a [employer] Client Healthcare Risk Control Consultant Downtime on 03/18/2025 from 0100 to 03/18/2025 at 0235. Downtime documentation of patient's care, including medication administrations, has been reconciled in the electronic record per guidelines. Refer to the
patient's paper chart under the miscellaneous tab to see printed paper medication records and downtime forms.
[2025-03-18] MEDS: ROXICODONE 5 MG PO ×2 (03:30→08:26)
--- NOTE | 2025-03-18 03:30 | PTCARENOTE ---
sys reviewed, changes noted, lungs decr in bases, R calf circumference 14.25', oxycodone 5mg po given for back & R calf pain
[2025-03-18 03:38] LABS: Hematocrit 33.5 % (39.0-52.0); Hemoglobin 10.9 g/dL (13.0-18.0); Mean Corp Hgb Conc. 32.5 g/dL (33.0-37.0); Mean Corpuscular Volume 94.1 fL (80.0-94.0); Platelet Count 107 10^3/uL (130-400); Red Cell Dist. Width 13.9 % (11.5-14.5)
[2025-03-18 04:00] LABS: Blood Urea Nitrogen 30 mg/dl (9-20); Calcium 8.7 mg/dl (8.4-10.2); Carbon Dioxide 25 mmol/L (22-30); Chloride 105 mmol/L (98-107); Estimated Creatinine Clearance 48 ml/min; Glucose 125 mg/dl (70-99); Potassium 4.4 mmol/L (3.5-5.1); Sodium 134 mmol/L (135-145); eGFR > 60.00
--- NOTE | 2025-03-18 06:50 | W.PN.INTV ---
Today's Communication / Plan
Recommendations
Ambulate
Resume outpatient medications
Patient passing gas, tolerating p.o.
Continue aspirin/Plavix
Possible discharge later p.m.
Assessment
-
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
distal extension with bifurcated endoprosthesis and bilateral iliac limb extension, right axillary cut down, bilateral common femoral artery closure on 03/16/25 without complication.
S/p EVAR with GORE thoracoabdominal aortic branched graft (TAMBE)
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
blood loss 200 cc
Challenging but successful cannulation of right renal artery
Mild leukocytosis
Conditions present prior to admission
Hypertension/hyperlipidemia
GERD
BPH
History of pacemaker, sick sinus syndrome
Plan/recommendations
At this time, patient appears to be doing well objectively and subjectively
Right leg pain improving
Denies abdominal pain. Creatinine is stable
Moving forward
Continue with management per vascular surgery
Extremities warm, pulses intact, bilateral femoral pulse intact
Arterial study unremarkable, groin ultrasound unremarkable
Patient ambulating without difficulty
Pain control
vascular checks per protocol
Resume outpatient regimen per vascular protocol
Aspirin and Plavix to started 03/17
Reviewed with critical care nursing, respiratory care, pharmacy
Possible disposition, discharge later today
Subjective Dataa
Subjective Data
Date of Service:
Date of Service: March 18, 2025
Subjective:
Patient is without complaints. Passing gas. Denies shortness of breath, nausea, abdominal pain. Right leg pain has improved
Objective Data
Data Reviewed
Vital Signs / I&O / Oxygen:
Vital Signs
Temp Pulse Resp BP Pulse Ox
98.9 F 60 10 106/61 96
03/18/25 03:30 03/18/25 06:01 03/18/25 06:01 03/18/25 06:01 03/18/25 06:00
Intake and Output
03/16/25 03/17/25 03/18/25
06:59 06:59 06:59
Intake Total 1850 / 1930 840 / 840
Output Total 3055 / 3240 535 / 535
Balance -1205 / -1310 305 / 305
SaO2 96
Nasal Cannula flow liters per 2
minute
Physical Exam
General: Comfortable
HEENT: Normocephalic and Anicteric
Cardiovascular: S1-S2, Regular Rhythm and Murmur (n)
Respiratory: Wheeze (n), Crackles (n), Rhonchi (n) and Non-Labored Respirations
GI: Soft, Non Distended and Non Tender
Neurology: Awake, Alert and No Motor Deficits
Skin: Rash (n), Bruising (n) and Other (Right anterior chest incision intact)
Labs/Micro/Reports
Lab Data
03/18/25 03:23
03/18/25 03:23
[2025-03-18] MEDS: ASPIR LOW (ENTERIC COATED) 81 MG PO (08:26)
[2025-03-18] MEDS: OSCAL 500 + D 500 MG PO (08:26)
[2025-03-18] MEDS: PLAVIX 75 MG PO (08:27)
[2025-03-18] MEDS: HEPARIN 5000 UNITS SC (08:27)
[2025-03-18] MEDS: PROTONIX 20 MG PO (08:27)
[2025-03-18] MEDS: VITAMIN C 500 MG PO (08:27)
--- NOTE | 2025-03-18 08:41 | W.PN.VS ---
Today's Communication / Plan
-
Patient seen examined bedside with Dr. Nathanael Gallegos M.D. below plan reviewed with attending.
Assessment/Plan
-
Postop day 2
Endovascular repair of juxtarenal abdominal aortic aneurysm with [place] TAMBE thoracoabdominal branched endoprosthesis with 4 vessel branch stent graft placement (with [place] VBX covered stents).
Distal extension with [place] excluder bifurcated endoprosthesis with bilateral iliac limb extension.
Right axillary open surgical cutdown.
Percutaneous bilateral common femoral artery closure.
Plan:
Continue to encourage ambulation
P.o. medications
Left groin ultrasound demonstrates no pseudoaneurysm
Bilateral lower extremity arterial ultrasound/MICHAEL/TBI, demonstrating adequate blood flow and no significant arterial occlusion
Continue aspirin/Plavix
Likely discharge later this afternoon
Subjective Data
-
Date of Service: March 18, 2025
Patient seen examined at chair side, offers no complaints. Reports that right calf muscle pain is improved and he was tolerating ambulating multiple laps around the hallways. Does endorse mild pain still at calf but vastly improved.
Objective Data
-
Vital Signs
Temp Pulse Resp BP Pulse Ox
98.8 F 60 10 106/61 96
03/18/25 07:01 03/18/25 06:01 03/18/25 06:01 03/18/25 06:01 03/18/25 06:00
Intake and Output
03/17/25 03/18/25 03/19/25
06:59 06:59 06:59
Intake Total 1850 / 1930 840 / 840
Output Total 3055 / 3240 535 / 535
Balance -1205 / -1310 305 / 305
Intake:
Oral fluids 300 / 300 680 / 680
IV fluids (Total) 1550 / 1630 160 / 160
Normosol 300 / 300
Nss 1,000 ml @ 80 mls/hr IV . 970 / 1050 160 / 160
[id number] REUBEN Rx#:[id number]
misti gluc 100 / 100
mag sulfate 100 / 100
ns @80/hr 80 / 80
Output:
Urine, Green 3055 / 3240 185 / 185
Urine, Voided 350 / 350
Other:
Number of approximated MODERATE 1 1
amounts of urine
Lab Results
03/18/25 03:23
03/18/25 03:23
Calcium 8.7 mg/dl (8.4-10.2) 03/18/25 03:23
Phosphorus 3.9 mg/dl (2.5-4.5) 03/16/25 17:15
Magnesium Cancelled 03/16/25 21:22
Total Bilirubin 0.7 mg/dl (0.2-1.3) 03/16/25 17:15
Direct Bilirubin 0.4 mg/dl (0.0-0.4) 03/16/25 17:15
AST 25 U/L (17-59) 03/16/25 17:15
ALT 16 U/L (0-50) 03/16/25 17:15
Alkaline Phosphatase 68 U/L (38-126) 03/16/25 17:15
Total Protein 5.3 g/dl (6.3-8.2) L 03/16/25 17:15
Albumin 3.0 g/dl (3.5-5.0) L 03/16/25 17:15
Physical Exam
-
AAO x 3
No tachypnea on room air
No tachycardia
Abdomen soft, nontender, nondistended
Right groin site clean, dry, intact, soft, flat
Left groin site clean, dry, intact, soft, flat, small area of ecchymosis outlined/unchanged
Right calf slightly larger than left, slightly tense, no pain with compression/palpation
Bilateral feet warm and pink, palpable DP pulses
--- NOTE | 2025-03-18 09:10 | PTCARENOTE ---
Rec'd pt at 0710- Rec'd pt sitting oob in the chair. Awake alert and oriented. Is [place]. Overall states he feels good. Does admit to 4/10 Lower back pain and some R calf achiness but states the calf is much better than yesterday. Medicated at 0826
with Roxicodone 5 mg po for pain. IGLESIAS. Denies headache or dizziness. Speech is clear. Skin is pink wm and dry. Pt with 3 incisions all open to air with surgical adhesive present. R upper chest incision approximated with sl ecchymosis at the site- no
swelling or drainage. Bilateral groin incisions open to air approximated- both groin sites with ecchymosis but L groin with more extensive ecchymosis in general but no swelling or firmness. Respirs are unlabored at rest on RA with sats of 94%. BS
are minimally decreased at the bases otherwise clear. Getting about 1700 on IS. Monitor V paced. + pulses. PT and DP pulses are weak to palp but easily audible with the doppler. + 2 R lower extremity swelling but per previous shift feeling much
better than yesterday. Calf circumfrence measuring 14 inches. + radial pulses. Denies chest pain. VS as documented. Abd is soft with + BS. Denies nausea. Voided in the bathroom this am. Capped ints intact R FA, R AC and L arm. Sites wnl. Dr. Gallegos in
to see pt and updated. Plan of care reviewed with pt. Call taylor in reach. Currently pts daughters at the bedside and updated. Pt eating breakfast.
--- NOTE | 2025-03-18 10:20 | PTCARENOTE ---
Good appetite for breakfast. No c/o nausea. Pulses unchanged. Still with some back and R calf pain but states he does not have ankle pain and that the calf overall is better than yesterday. Ambulated 2 loops around the ICU using a rolling walker.
Sats 95% walking. Gait is steady and pt states the more he walks the better it makes his back feel. Was not dyspnic this am with ambulation. Currently admits to feeling tired and wanted to rest back in bed. Assisted back to bed. Call taylor in reach.
Family at the bedside. VS as documented.
--- NOTE | 2025-03-18 11:33 | W.[place]-PDMP ---
[place]-PD[place]
-
Checked the [place]- Prescription Drug Monitoring Program website, no red flags identified; safe to proceed with prescription.
--- NOTE | 2025-03-18 11:52 | W.DS.TRANS ---
DC Summary - [employer]
-
Discharge Instructions:
Sleep Apnea Risk Intermediate
Discharge Diagnosis/Procedures Endovascular repair of juxtarenal abdominal
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
branched endoprosthesis with 4 vessel branch
stent graft placement
Diet As tolerated
Activity No strenuous activity
Driving Restrictions Not until seen by your Dr
Bathing Restrictions OK to Shower
Instructions:
Stand-Alone Forms: Vascular Surg Discharge Instr
Changes to Home Medications: Yes
Discharge Medications:
DC Medications w/original date entered in [employer]
3 In 1 Daily Fiber 5 cap PO BID Supplement 03/09/25
ascorbic acid (vitamin C) 500 mg tablet (Vitamin C) 500 mg PO DAILY Supplement 03/09/25
aspirin 81 mg tablet,delayed release 81 mg PO DAILY Blood Clot Prevention/Tx 03/09/25
calcium 600 mg (as carbonate)-vitamin D3 10 mcg (400 unit) tablet (Calcium 600 + D(3)) 1 tab PO DAILY Supplement 03/09/25
ibuprofen 200 mg tablet 200 - 400 mg PO Q6H PRN pain/headache 03/09/25
Held on 03/18/25. Instructions: Should use alternate pain medication like Tylenol while taking Plavix
metoprolol succinate 50 mg tablet,extended release 24 hr 50 mg PO HS Heart Disease/Condition 03/09/25
pantoprazole 20 mg tablet,delayed release 20 mg PO DAILY Gastrointestinal Issue 03/09/25
rosuvastatin 5 mg tablet 5 mg PO HS High Cholesterol 03/09/25
tamsulosin 0.4 mg capsule 0.4 mg PO HS Urinary Issue 03/09/25
clopidogrel 75 mg tablet 75 mg PO DAILY #90 tabs 03/18/25
oxycodone 5 mg tablet 5 mg PO Q6HPRN PRN moderate pain #6 tabs 03/18/25
Home Medication Changes
Added:
clopidogrel 75 mg tablet 75 mg PO DAILY #90 tabs 03/18/25
oxycodone 5 mg tablet 5 mg PO Q6HPRN PRN moderate pain #6 tabs 03/18/25
Held:
ibuprofen 200 mg tablet 200 - 400 mg PO Q6H PRN pain/headache 03/09/25
Held on 03/18/25. Instructions: Should use alternate pain medication like Tylenol while taking Plavix
Pending Results: No
--- NOTE | 2025-03-18 12:15 | PTCARENOTE ---
Slept for while and currently awake. Assessment is unchanged- + pulses. R calf swelling overall unchanged. No increase. Still admits to some calf soreness but does not want anything for it. Extremities are warm. DC orders written. VS as documented.
--- NOTE | 2025-03-18 13:39 | CM ---
Patient has been medically cleared for discharge to home with no additional skilled services. Daughter will remain with patient for at least 2 weeks. Daughter will transport home. IMM complete.
--- NOTE | 2025-03-18 13:40 | PTCARENOTE ---
Capped ints removed from R and L arms-sites wnl. Incisions and pulses unchanged. All discharge instructions given to both pt and his two daughters. Pt verbalized understanding and was able to repeat teaching and asked questions appropriately. All
belongings from room returned to pt. Pt dc'd via wheelchair with daughters.
== END 2025-03-18 14:46 | disposition home or self-care (01) | DRG 221 ==
LOC: ICU 06:11
PROVIDERS: Nurse Practitioner; Nurse Practitioner Acute Care; ADMITTING PHYSICIAN Surgery Vascular Surgery; CONSULT PHYSICIAN Internal Medicine Critical Care Medicine; FAMILY PHYSICIAN Nurse Practitioner Family; PRIMARYCARE PHYSICIAN Internal Medicine Cardiovascular Disease
PROC: [UNRECOGNIZED PROCEDURE] (2025-03-16)
DX: I71.42 Juxtarenal abdominal aortic aneurysm, without rupture (principal); I10 Essential (primary) hypertension; K21.9 Gastro-esophageal reflux disease without esophagitis; N40.0 Benign prostatic hyperplasia without lower urinary tract symptoms; E78.5 Hyperlipidemia, unspecified; I49.5 Sick sinus syndrome; Q27.2 Other congenital malformations of renal artery; Z79.82 Long term (current) use of aspirin; Z79.899 Other long term (current) drug therapy; Z87.442 Personal history of urinary calculi; Z95.0 Presence of cardiac pacemaker
CPT/HCPCS: 34705; 34713; 36415; 71045; 71046; 80048; 80053; 80076; 82962; 83605; 83735; 84100; 85025; 85027; 85610; 85730; 86850; 86900; 86901; 93005; 93922; 93925; 93926; 93971; C1725; C1760; C1769; C1773; C1874; C1892; C1894; Q9967

== ENCOUNTER → 2025-04-20 11:25 | Outpatient (REF) | payer MEDICARE, OTHER, SELFPAY | LOC: RAD 11:25 | PROVIDERS: ATTENDING PHYSICIAN Registered Nurse; FAMILY PHYSICIAN Nurse Practitioner Family | DX: I71.40 Abdominal aortic aneurysm, without rupture, unspecified (principal) | CPT/HCPCS: 74174; Q9967 ==